=== PATIENT | female | born 1930 | race Hispanic/Latino ===

== ENCOUNTER 2017-05-08 08:06 | Emergency (ER) | payer MEDICARE, MEDICAID ==
[2017-05-08 08:12] VITALS: RESP 18; TEMP 97.5
--- NOTE | 2017-05-08 08:18 | ED PDOC ---
Arrival/HPI - General Time Seen by Provider: 05/08/17 08:08 Historian: Patient - History of Present Illness Narrative History of Present Illness (Text): 05/08/17 08:28 An 87 year old female, whose past medical history includes dementia, brought in by EMS after fall complaining of right hip pain. Patient reports she remembers falling last night, no witness present. Patient was trying to walk with walker but couldn't hold herself up. Patient notes left hip pain, neck pain and lower back pain but denies any other complaints at this time. Symptom Onset: Sudden Symptom Course: Unchanged Activities at Onset: Rest Context: Home Associated Symptoms (Text): neck and lower back pain Past Medical History - Provider Review Nursing Documentation Reviewed: Yes Family/Social History - Physician Review Nursing Documentation Reviewed: Yes Family/Social History: No Known Family HX Allergies/Home Meds Allergies/Adverse Reactions: Allergies cephalexin [From Keflex] Allergy (Verified 05/08/17 08:11) RASH levofloxacin [From Levaquin] Allergy (Verified 05/08/17 08:11) RASH Sulfa (Sulfonamide Antibiotics) Allergy (Verified 05/08/17 08:11) RASH dye Adverse Reaction (Uncoded 05/08/17 08:12) RASH Home Medications: Home Meds Medication Instructions Recorded Confirmed Aspirin [Aspirin Chewable] 81 mg PO DAILY 05/08/17 05/08/17 Budesonide/Formoterol Fumarate 1 inh NEB Q12 05/08/17 05/08/17 [Symbicort 160-4.5 Mcg Inhaler] Clopidogrel [Plavix] 75 mg PO DAILY 05/08/17 05/08/17 Famotidine [Pepcid] 20 mg PO DAILY 05/08/17 05/08/17 Ondansetron [Zofran Tab] 4 mg PO Q4 PRN 05/08/17 05/08/17 Review of Systems - Physician Review All systems were reviewed & negative as marked: Yes - Review of Systems Constitutional: absent: Fevers Musculoskeletal: Back Pain (lower), Neck Pain, Other (right hip pain) Neurological: absent: Headache Physical Exam Vital Signs Reviewed: Yes Vital Signs Temp Pulse Resp BP Pulse Ox 05/08/17 12:32 90 18 177/86 H 98 05/08/17 08:12 97.5 F L 101 H 18 193/82 H 100 05/08/17 08:07 97.6 F 96 H 20 193/82 H 96 Temperature: Afebrile Blood Pressure: Hypertensive Pulse: Regular Respiratory Rate: Normal Appearance: Positive for: Well-Appearing, Non-Toxic, Comfortable Pain Distress: None Mental Status: Positive for: Alert and Oriented X 3 - Systems Exam Head: Present: Atraumatic, Normocephalic Pupils: Present: PERRL Extroacular Muscles: Present: EOMI Conjunctiva: Present: Normal Mouth: Present: Moist Mucous Membranes Neck: Present: Normal Range of Motion. No: MIDLINE TENDERNESS Respiratory/Chest: Present: Clear to Auscultation, Good Air Exchange. No: Respiratory Distress, Accessory Muscle Use Cardiovascular: Present: Regular Rate and Rhythm, Normal S1, S2. No: Murmurs Abdomen: Present: Normal Bowel Sounds. No: Tenderness, Distention, Peritoneal Signs Back: Present: Other (lower lumbar tenderness) Upper Extremity: Present: Normal Inspection. No: Cyanosis, Edema Lower Extremity: Present: Normal ROM (R hip), Tenderness (both hip, R shortened) , Other (distal pedal trace pulses equal). No: Edema Neurological: Present: GCS=15, CN II-XII Intact, Speech Normal Skin: Present: Warm, Dry, Normal Color. No: Rashes Psychiatric: Present: Alert, Oriented x 3, Normal Insight, Normal Concentration Medical Decision Making ED Course and Treatment: 05/08/17 08:15 Impression: An 87 year old female with right hip pain after fall. Differential Diagnosis included but are not limited to: fall r/o fracture Plan: -- EKG -- Chest xray -- CT head -- CT cervical spine -- CT lumbar spine -- CT pelvis -- Xray hip bilateral -- labs -- Urinalysis -- Reassess and disposition Progress Notes: EKG: Ordered, reviewed, and independently interpreted the EKG. Rate : 95 BPM Rhythm : NSR Interpretation : Left bundle branch block CT HEAD WITHOUT CONTRAST Creator : Romulo Rodgers MD 05/08/2017 09:52 IMPRESSION: No intracranial mass, hemorrhage or evidence of acute infarct. 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 Limited evaluation of the posterior fossa and inferior frontal lobes and anterior temporal lobes due to patient motion artifact. Extensive chronic white matter ischemic change. Age-appropriate atrophy. 05/08/17 10:50 Radiographs of the pelvis and bilateral hips Creator : Romulo Rodgers MD IMPRESSION: No acute fracture. Right hip arthroplasty. Left hip osteoarthritis. 05/08/17 10:43 CT Pelvis without contrast Creator : Phoenix Bee MD IMPRESSION: No evidence of acute pelvic fractures. Right total hip replacement. Degenerative changes left hip. Postoperative changes sigmoid colon with colonic diverticula. No radiographic evidence acute diverticulitis. Moderately large ventral wall hernia that contains loop of small bowel and probably a short segment of the transverse colon. 05/08/2017 10:55 CHEST RADIOGRAPH Creator : Phoenix Bee MD IMPRESSION: There appears to be some mild linear scarring/ atelectasis left lung base associate with mild localized tenting of the hemidiaphragm. Note is made of a small approximately 4.5 mm vague rounded density left upper lung field overlying the medial aspect of the clavicle, medial aspect posterior 3rd rib and medial aspect anterior 1st rib. This could represent confluence of shadow artifact however possibility of a small granuloma or parenchymal nodule cannot be excluded. Alternately, nonemergent CT scan of the chest could be performed for further evaluation. Note that this report was placed in PA review folder for followup. 05/08/2017 10:22 CT lumbar spine Creator : Phoenix Bee MD IMPRESSION: No acute compression fractures nor retropulsed fragments. Multilevel degenerative spondylosis most notably affecting the L4-L5 level with anterior subluxation of L4 over L5, broad-based disc bulging and hypertrophic facets with central canal and bilateral lateral recess stenosis. The right exit foramen is also stenotic. 05/08/2017 10:08 CT Cervical Spine without contrast Creator : Phoenix Bee MD IMPRESSION: No acute compression fractures no retropulsed fragments. Multilevel degenerative spondylosis as described. . Fusion changes C4-C5 vertebral body segment felt to be degenerative in origin. Patient's CT showed no fracture. Cervical collar was removed. FROM with no numbness. Patient denies any pain and feels better. She states she wants to go home. I discussed this case with patient's PMD Dr. Wayne who agrees that she can be discharged home and he will follow up with her as an outpatient. - Lab Interpretations Lab Results: 05/08/17 09:05 05/08/17 09:05 Lab Results 05/08/17 12:30: Urine Color Light yellow, Urine Appearance Cloudy, Urine pH 6.5 , Ur Specific Simpson 1.015, Urine Protein 30 H, Urine Glucose (UA) Negative, Urine Ketones Negative, Urine Blood Small H, Urine Nitrate Positive H, Urine Bilirubin Negative, Urine Urobilinogen 0.2, Ur Leukocyte Esterase Large H, Urine RBC 1 - 3, Urine WBC Tntc, Ur Epithelial Cells 0 - 2, Urine Bacteria Many 05/08/17 09:05: PT 11.3, INR 1.05, APTT 32.6 H 05/08/17 09:05: Sodium 141, Potassium 3.9, Chloride 106, Carbon Dioxide 26, Anion Gap 13, BUN 18, Creatinine 0.9, Est GFR ( Amer) > 60, Est GFR (Non- Af Amer) 59, Random Glucose 119 H, Calcium 10.2, Magnesium 1.9, Total Bilirubin 1.2, AST 77 H, ALT 59 H, Alkaline Phosphatase 145 H, Lactate Dehydrogenase 621, Total Creatine Kinase 151, Troponin I 0.04, Total Protein 8.4 H, Albumin 4.2, Globulin 4.2, Albumin/Globulin Ratio 1.0 L 05/08/17 09:05: WBC 8.4, RBC 4.46, Hgb 14.3, Hct 42.2, MCV 94.6, MCH 32.1, MCHC 33.9, RDW 14.2, Plt Count 117 L, MPV 10.2, Gran % 79.2 H, Lymph % (Auto) 12.1 L , Rusk % (Auto) 6.5 H, Eos % (Auto) 1.8, Baso % (Auto) 0.4, Gran # 6.63 H, Lymph # 1.0 L, Rusk # 0.5, Eos # 0.2, Baso # 0.03 I have reviewed the lab results: Yes Interpretation: No clinic. lab abnormalty - RAD Interpretation Radiology Orders: 05/08/17 08:15 CERVICAL SPINE W/O CONTRAST [CT] Stat HEAD W/O CONTRAST [CT] Stat LUMBAR SPINE W/O CONTRAST [CT] Stat PELVIS W/O PO OR IV CONTRAST [CT] Stat 05/08/17 08:17 CHEST ONE VIEW [RAD] Stat Hip Bilateral [HIP MIN 3V W/ PELVIS MELISSA] [RAD] Stat Nursing Home Director: Radiologist - EKG Interpretation Interpreted by ED Physician: Yes Type: 12 lead EKG - Medication Orders Current Medication Orders: Discontinued Medications Acetaminophen (Tylenol 325mg Tab) 650 mg PO STAT STA Stop: 05/08/17 08:15 Last Admin: 05/08/17 09:14 Dose: 650 mg Nitrofurantoin Macrocrystals (Macrobid) 100 mg PO STAT STA Stop: 05/08/17 13:16 Last Admin: 05/08/17 14:15 Dose: 100 mg - Scribe Statement The provider has reviewed the documentation as recorded by the Dc Gould Provider Scribe Attestation: All medical record entries made by the Dc were at my direction and personally dictated by me. I have reviewed the chart and agree that the record accurately reflects my personal performance of the history, physical exam, medical decision making, and the department course for this patient. I have also personally directed, reviewed, and agree with the discharge instructions and disposition. Disposition/Present on Arrival - Present on Arrival Any Indicators Present on Arrival: No - Disposition Have Diagnosis and Disposition been Completed?: Yes Diagnosis: Fall, Hip pain, UTI (urinary tract infection) Disposition: HOSPITALIZED Disposition Time: 14:00 Patient Plan: Discharge Patient Problems: Current Active Problems Problem Status Onset Fall Acute Hip pain Acute UTI (urinary tract infection) Acute Condition: IMPROVED Discharge Instructions (ExitCare): Urinary Tract Infection in Women (ED), Fall Prevention for Older Adults (ED), Hip Contusion (ED) Additional Instructions: Monica, thank you for letting us take care of you today. Your provider was Dr. Church. You were treated for Fall, Hip Contusions, UTI. The emergency medical care you received today was directed at your acute symptoms. If you were prescribed any medication, please fill it and take as directed. It may take several days for your symptoms to resolve. Return to the Emergency Department if your symptoms worsen, do not improve, or if you have any other problems. Please contact your doctor or call one of the physicians/clinics you have been referred to that are listed on the Patient Visit Information form that is included in your discharge packet. Bring any paperwork you were given at discharge with you along with any medications you are taking to your follow up visit. Our treatment cannot replace ongoing medical care by a primary care provider (PCP) outside of the emergency department. Thank you for allowing the [facility] team to be part of your care today. If you had an X-Ray or CT scan: A Radiologist will review the ED reading if any change in treatment is needed we will contact you. If you had a blood, urine, or wound culture: It will take several days for the results, if any change in treatment is needed we will contact you. If you had an STI test: It will take 48 hours for the results. Please call after 1 week if you have not heard back. Prescriptions: Nitrofurantoin Macrocrystals [Macrobid] 100 mg PO BID #10 cap Referrals: Francisco Wayne, DO [Primary Care Provider] - Follow up with primary Forms: [employer] (Divehi)
[2017-05-08 09:22] LABS: ADD MANUAL DIFF? NO
[2017-05-08 09:25] LABS: BASO # 0.03 K/mm3 (0.0-2.0); BASO % 0.4 % (0.0-3.0); EOS # 0.2 (0.0-0.7); EOS % 1.8 % (1.5-5.0); GRAN # 6.63 (1.4-6.5); GRAN % 79.2 % (50.0-68.0); HEMATOCRIT 42.2 % (36.0-48.0); LYMPH % 12.1 % (22.0-35.0); MEAN CELL VOLUME 94.6 fL (80.0-105.0); MEAN CORPUSCULAR HEMOGLOBIN 32.1 pg (25.0-35.0); MEAN CORPUSCULAR HGB CONC 33.9 g/dl (31.0-37.0); MEAN PLATELET VOLUME 10.2 fl (7.0-11.0); MONO # 0.5 (0.1-0.6); MONO % 6.5 % (1.0-6.0); PLATELET COUNT 117 10^3/uL (120.0-450.0); RED CELL DISTRIBUTION WIDTH 14.2 % (11.5-14.5); WHITE BLOOD COUNT 8.4 10^3/ul (4.5-11.0)
[2017-05-08 09:31] VITALS: BMI 28.7
[2017-05-08 09:34] LABS: ALKALINE PHOSPHATASE 145 U/L (38-133); ALT/SGPT 59 U/L (7-56); AST/SGOT 77 U/L (15-39); BILIRUBIN,TOTAL 1.2 mg/dL (0.2-1.3); BLOOD UREA NITROGEN 18 mg/dL (7-21); CALCIUM 10.2 mg/dL (8.4-10.5); CARBON DIOXIDE 26 mmol/L (21-33); CHLORIDE 106 mmol/L (98-107); GFR AFRICAN-AMERICAN > 60; GLUCOSE,RANDOM 119 mg/dL (70-110); MAGNESIUM 1.9 mg/dL (1.7-2.2); POTASSIUM 3.9 mmol/L (3.6-5.0); SODIUM 141 mmol/L (132-148); TOTAL PROTEIN 8.4 g/dL (5.8-8.3)
[2017-05-08 09:37] LABS: INR 1.05 (0.93-1.08); PARTIAL THROMBOPLASTIN TIME 32.6 Seconds (23.7-30.8)
--- NOTE | 2017-05-08 09:49 | CT ---
PROCEDURE: CT HEAD WITHOUT CONTRAST. HISTORY: fall r/o fx r/o ich COMPARISON: None available. TECHNIQUE: Axial computed tomography images were obtained through the head/brain without intravenous contrast. Radiation dose: Total exam DLP = 677.45 mGy-cm. This CT exam was performed using one or more of the following dose reduction techniques: Automated exposure control, adjustment of the mA and/or kV according to patient size, and/or use of iterative reconstruction technique. FINDINGS: HEMORRHAGE: No intracranial hemorrhage. BRAIN: Evaluation limited due to motion artifact obscuring the posterior fossa. Subtle abnormalities of the posterior fossa and inferior frontal anterior temporal lobes are likely obscured by this motion artifact. There is mild diffuse age-appropriate cerebral atrophy. There is multifocal bilateral encephalomalacia involving both frontal lobes along the convexities, likely the result of small old infarcts. No evidence of acute infarct. Old left cerebellar hemispheric infarct noted. Old left lentiform nucleus lacunar infarct noted. Possible old left pontine infarct noted. Bilateral old thalamic lacunar infarcts are noted. Moderate to severe periventricular and deep white matter lucency consistent with age related microvascular ischemic change. VENTRICLES: Mild ventriculomegaly likely due to ex vacuo dilatation from surrounding parenchymal atrophy. CALVARIUM: Unremarkable. PARANASAL SINUSES: Unremarkable as visualized. No significant inflammatory changes. MASTOID AIR CELLS: Unremarkable as visualized. No inflammatory changes. OTHER FINDINGS: None. IMPRESSION: No intracranial mass, hemorrhage or evidence of acute infarct. 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 Limited evaluation of the posterior fossa and inferior frontal lobes and anterior temporal lobes due to patient motion artifact. Extensive chronic white matter ischemic change. Age-appropriate atrophy.
--- NOTE | 2017-05-08 10:08 | CT ---
PROCEDURE: CT Cervical Spine without contrast HISTORY: <fall r/o fx> COMPARISON: None available. TECHNIQUE: Axial computed tomography images were obtained of the cervical spine without the use of intravenous contrast. Coronal and sagittal reformatted images were created and reviewed. Radiation dose: Total exam DLP = 526.77 mGy-cm. This CT exam was performed using one or more of the following dose reduction techniques: Automated exposure control, adjustment of the mA and/or kV according to patient size, and/or use of iterative reconstruction technique. FINDINGS: VERTEBRAE: Current study reveals no evidence of acute compression fractures nor retropulsed fragments. Vertebral bodies exhibit normal name stature. . There are fusion changes of the C4 and C5 segments felt to be degenerative in origin. Straightening of the normal cervical lordosis. Vertebral bodies otherwise exhibit normal alignment. Facets normally aligned. . DISCS/SPINAL CANAL/NEURAL FORAMINA: Multilevel degenerative spondylosis. At the C2-C3 level, there is relatively adequate disc height. . No disc herniation or significant disc bulge. The facet joints are hypertrophic. Central canal appears adequate. Exit foramina appear marginal to adequate. At the C3-C4 level, there disc space narrowing with what appears represent a small partially bridging posterior osteophyte on extending to the posterior superior C4 corner. . This same osteophytic ridge is contiguous with hypertrophic uncovertebral joints right larger than left. The facets are hypertrophic as well. . . Exit foramina appear stenotic. Central canal appears marginal to minimally narrowed. At the C4-C5 level, as mentioned above, on degenerative fusion changes with asymmetric osteophytic ridge larger on the right than left and contiguous with hypertrophic uncovertebral joints. Changes result in [id number] canal narrowing more so on the right side. Facet joints also hypertrophic. . At the C5-C6 level, disc space narrowing with endplate eburnation and asymmetric osteophytic ridge disc complex larger on the left than right and also contiguous with hypertrophic uncovertebral joints. There is resultant central canal narrowing and presumed mild cord compression. Exit foramina appear stenotic bilaterally. At the C6-C7 level, there is also marked disc space narrowing endplate eburnation and small osteophytic ridge disc complex contiguous with hypertrophic uncovertebral joints. Facets also hypertrophic. Central canal exit foramina appear adequate. PARASPINAL SOFT TISSUES: Prevertebral and paraspinal soft tissues unremarkable Note made of of vascular calcifications involving the anterior and posterior circulation. Suspect hypodense nodule right lobe thyroid gland. Thyroid ultrasound followup could be performed. OTHER FINDINGS: Lung apices clear. IMPRESSION: No acute compression fractures no retropulsed fragments. Multilevel degenerative spondylosis as described. . Fusion changes C4-C5 vertebral body segment felt to be degenerative in origin.
[2017-05-08 10:10] LABS: TROPONIN I 0.04 ng/mL
--- NOTE | 2017-05-08 10:20 | CT ---
PROCEDURE: CT lumbar spine 05/08/2017 HISTORY: fall r/o fx COMPARISON: None. TECHNIQUE: Axial computed tomography images were obtained of the lumbar spine without the use of intravenous contrast. Coronal and sagittal reformatted images were created and reviewed. Radiation dose: Total exam DLP = 824.1 mGy-cm. This CT exam was performed using one or more of the following dose reduction techniques: Automated exposure control, adjustment of the mA and/or kV according to patient size, and/or use of iterative reconstruction technique. FINDINGS: VERTEBRAE: Unremarkable. No fracture. Normal alignmentNo acute compression fractures no retropulsed fragments. Vertebral bodies exhibit normal stature of. There is a moderate levoscoliosis centered at approximately the L3-L4 level. In addition, there is less than grade 1 anterior subluxation L4 over L5 felt to be due to hypertrophic facets as no definitive pars interarticularis defect is identified. The remaining vertebral bodies otherwise exhibit normal alignment. Facets normally aligned. DISCS/SPINAL CANAL/NEURAL FORAMINA: L1-2: Mild posterior disc space narrowing. The no disc herniation however there is mild broad-based asymmetric disc bulge larger on the left than right. Changes result in some flattening the ventral surface of the thecal sac however the overall central canal is quite capacious. Exit foramina are adequate. . L2-3: Disc space height maintained. No disc herniation or significant disc bulge. Facets are mildly hypertrophic. Central canal and exit foramina are adequate. L3-4: Disc space height is relatively maintained. Mild broad-based bulge of the posterior annulus. Facets are hypertrophic. Ligamentum flavum are also buckled. Central canal appears adequate. Exit foramina are adequate. L4-5: Degenerative spondylosis includes disc space narrowing, endplate eburnation with subchondral sclerosis/ cystic changes and Schmorl's nodes. There is slight uncovering of the posterior superior surface of the disc due to the anterior subluxation of L4 over L5 described above. The facets are quite hypertrophic right greater than left. Ligamentum flavum also buckled. The there is bilateral lateral recess and central canal stenosis. The left exit foramen is adequate. Right exit foramen is stenotic with compression of the L4 foraminal nerve root. . L5-S1: Minor posterior disc space narrowing with minimal broad-based bulge of the posterior annulus. The overall central canal is quite capacious at this level. Facets are hypertrophic. Exit foramina are adequate. PARASPINAL SOFT TISSUES: Unremarkable. OTHER FINDINGS: Small exophytic cyst lower pole kidney left kidney. Suspect the small cyst upper pole left kidney IMPRESSION: No acute compression fractures nor retropulsed fragments. Multilevel degenerative spondylosis most notably affecting the L4-L5 level with anterior subluxation of L4 over L5, broad-based disc bulging and hypertrophic facets with central canal and bilateral lateral recess stenosis. The right exit foramen is also stenotic.
--- NOTE | 2017-05-08 10:43 | CT ---
PROCEDURE: CT Pelvis without contrast 05/08/2017 HISTORY: fall r/o fx COMPARISON: No prior though correlation made with concurrent CT scan of the lumbar spine. TECHNIQUE: Contiguous axial images of the pelvis . No intravenous or oral contrast given. Coronal and sagittal reformats generated. Radiation dose: Total exam DLP = 733.45 mGy-cm. This CT exam was performed using one or more of the following dose reduction techniques: Automated exposure control, adjustment of the mA and/or kV according to patient size, and/or use of iterative reconstruction technique. FINDINGS: BLADDER: Urinary bladder is incompletely visualized due to significant streak and beam hardening artifact arising from right-sided total hip replacement. REPRODUCTIVE ORGANS: Uterus is not visualized consistent with hysterectomy. VISUALIZED BOWEL: There is evidence of anastomosis of the sigmoid colon evidenced by peripheral suture. Clinical correlation with surgical history. There is an anastomosis at the level of the sigmoid colon evidenced by peripheral suture. Clinical correlation with surgical history recommended. Scattered colonic diverticula arising from the sigmoid and distal descending colon noted. No radiographic evidence of acute diverticulitis. There is a moderately large ventral wall hernia which contains nonobstructed loops of distal small bowel and what appears represent a short segment of the transverse colon as well as some adjacent mesentery. PERITONEUM: Unremarkable, as visualized. No free fluid. No free air. LYMPH NODES: No significant pelvic or inguinal adenopathy so far as can be seen. BONES: Intact as mentioned above comment right-sided total hip replacement. Degenerative changes of the left hip with joint space narrowing subchondral sclerosis and subchondral cystic changes involving acetabulum and femoral head. Productive changes of the acetabulum and humeral head noted as well. Mild degenerative changes both SI joints with a small amount of vacuum phenomena of right greater than left. VASCULATURE: The visualized portions of the distal abdominal aorta and iliac arteries the exhibit some minor calcified atherosclerotic plaque however no evidence of aneurysmal dilatation. OTHER FINDINGS: None. IMPRESSION: No evidence of acute pelvic fractures. Right total hip replacement. Degenerative changes left hip. Postoperative changes sigmoid colon with colonic diverticula. No radiographic evidence acute diverticulitis. Moderately large ventral wall hernia that contains loop of small bowel and probably a short segment of the transverse colon.
--- NOTE | 2017-05-08 10:50 | RAD ---
PROCEDURE: Radiographs of the pelvis and bilateral hips HISTORY: fall r/o fx COMPARISON: None. FINDINGS: BONES: Pelvis: Unremarkable. Right hip:Right hip arthroplasty. No evidence of prosthesis loosening. No dislocation. Left hip:Osteoarthritis. No articular erosion. No fracture. JOINTS: Right hip: As above Left hip: As above Sacroiliac Joints: Unremarkable. Pubic symphysis: Unremarkable. SOFT TISSUES: Normal. OTHER FINDINGS: None. IMPRESSION: No acute fracture. Right hip arthroplasty. Left hip osteoarthritis.
--- NOTE | 2017-05-08 10:55 | RAD ---
PROCEDURE: CHEST RADIOGRAPH, 1 VIEW HISTORY: fall r/o ptx COMPARISON: None available. FINDINGS: LUNGS: There appears to be some mild linear scarring/ atelectasis left lung base associate with mild localized tenting of the hemidiaphragm. Note is made of a small approximately 4.5 mm vague rounded density left upper lung field overlying the medial aspect of the clavicle, medial aspect posterior 3rd rib and medial aspect anterior 1st rib. This could represent confluence of shadow artifact however possibility of a small granuloma or parenchymal nodule cannot be excluded. Alternately, nonemergent CT scan of the chest could be performed for further evaluation. PLEURA: No pneumothorax or pleural fluid seen. CARDIOVASCULAR: Normal. OSSEOUS STRUCTURES: Mild levoscoliosis in the upper -mid thoracic region and mild dextroscoliosis lower thoracic region. . VISUALIZED UPPER ABDOMEN: Normal. OTHER FINDINGS: None. IMPRESSION: There appears to be some mild linear scarring/ atelectasis left lung base associate with mild localized tenting of the hemidiaphragm. Note is made of a small approximately 4.5 mm vague rounded density left upper lung field overlying the medial aspect of the clavicle, medial aspect posterior 3rd rib and medial aspect anterior 1st rib. This could represent confluence of shadow artifact however possibility of a small granuloma or parenchymal nodule cannot be excluded. Alternately, nonemergent CT scan of the chest could be performed for further evaluation. Note that this report was placed in [facility] review folder for followup.
[2017-05-08 12:52] LABS: PH,URINE 6.5 (4.7-8.0); URINE BILIRUBIN NEGATIVE (NEGATIVE); URINE BLOOD SMALL (NEGATIVE); URINE GLUCOSE (UA) NEGATIVE (NEGATIVE); URINE KETONE NEGATIVE (NEGATIVE); URINE LEUKOCYTE ESTERASE LARGE Leu/uL (NEGATIVE); URINE PROTEIN 30 mg/dL (<30 mg/dL); URINE UROBILINOGEN 0.2 E.U./dL (<1 E.U./dL)
[2017-05-08 13:03] LABS: URINE COLOR LIGHT YELLOW (YELLOW)
[2017-05-08 13:04] LABS: URINE APPEARANCE CLOUDY (CLEAR); URINE BACTERIA MANY (NEG); URINE WBC TNTC /hpf (0-6)
[2017-05-08 13:05] LABS: URINE EPITHELIAL CELLS 0 - 2 /hpf (0-5)
[2017-05-08 14:58] VITALS: BP 153/76; PULSE 94; O2SAT 96
--- NOTE | 2017-05-08 17:28 | CARD ---
APPROVED REPORT EKG Measurement Heart [id number] <Conclusion> Normal sinus rhythm Left bundle branch block Abnormal ECG
== END 2017-05-08 15:00 | disposition short-term general hospital (02) ==
LOC: MERGE 08:06 → ED 08:06
DX: N39.0 Urinary tract infection, site not specified (principal); M25.552 Pain in left hip; M25.551 Pain in right hip; W19.XXXA Unspecified fall, initial encounter; Y92.9 Unspecified place or not applicable; F03.90 Unspecified dementia, unspecified severity, without behavioral disturbance, psychotic disturbance, mood disturbance, and anxiety